=== PATIENT | male | born 1965 | race Caucasian/White ===

== ENCOUNTER 2019-03-28 09:53 | Inpatient (IN) | payer SELFPAY ==
[~2019-03-28] VITALS: Ht 167.6 cm; Wt 71.1 kg
[2019-03-28] VITALS (15 sets, daily range): BP systolic 112–143; BP diastolic 68–100
[2019-03-28] MEDS ORDERED: ALBU8.5H8 IH (09:55)
[2019-03-28 10:24] LABS: EOSINOPHILS % (AUTO) 2.8 % (1.0-6.0); HEMATOCRIT 42.2 % (41-53); HEMOGLOBIN 13.8 g/dL (13.5-17.5); LYMPHOCYTES % (AUTO) 32.7 % (22.0-44.0); MEAN CORPUSCULAR HEMOGLOBIN 29.7 pg (26.0-34.0); MEAN CORPUSCULAR HGB CONC 32.7 G/dL (31.0-37.0); MEAN CORPUSCULAR VOLUME 91 fL (80-100); MONOCYTES # (AUTO) 0.3 K/uL (0.1-1.0); MONOCYTES % (AUTO) 5.5 % (2.0-9.0); NEUTROPHILS # (AUTO) 3.5 K/uL (1.8-7.7); PLATELET COUNT (AUTO) 295 K/uL (150-450); RED BLOOD CELL COUNT(AUTO) 4.65 MIL/uL (4.50-5.90); RED CELL DISTRIBUTION WIDTH 13.1 % (11.5-14.5)
[2019-03-28] MEDS ORDERED: METOPROLOL TARTRATE 5 MG/5 ML VIAL IVP ONE (10:30)
[2019-03-28] MEDS ORDERED: MORPHINE SULFATE 2 MG/ML SYRINGE IVP ONE (10:30)
[2019-03-28] MEDS ORDERED: NITROGLYCERIN 2% (1 GM=INCH) PACKET TP ONE (10:30)
[2019-03-28] MEDS ORDERED: ASPIRIN 325 MG TABLET PO ONE (10:30)
[2019-03-28] MEDS ORDERED: ONDANSETRON HCL 4 MG/2 ML VIAL IVP ONE (10:30)
[2019-03-28 10:40] LABS: ANION GAP 9 mmol/L (8-16); CALCIUM, TOTAL 8.7 mg/dL (8.8-10.5); CARBON DIOXIDE 28 mmol/L (22-29); CHLORIDE 103 mmol/L (98-107); CREATININE 1.15 mg/dL (0.60-1.30); GLOMERULAR FILTR. RATE CALC > 60 mL/min (>60); GLUCOSE,RANDOM 128 mg/dL (70-110); POTASSIUM 3.8 mmol/L (3.5-5.1); SODIUM SERUM 140 mmol/L (136-145); UREA NITROGEN, BLOOD 19 mg/dL (7-18)
[2019-03-28] MEDS ORDERED: HEPARIN SODIUM,PORCINE 5,000 UNITS/ML VIAL ONE (10:42)
[2019-03-28 10:45] LABS: ALANINE AMINOTRANSFERASE 56 U/L (12-78); ALBUMIN 3.3 g/dL (3.4-5.0); ALKALINE PHOSPHATASE 99 U/L (46-116); ASPARTATE AMINOTRANSFERASE 33 U/L (15-37); BILIRUBIN,TOTAL 0.4 mg/dL (0.1-1.0); TOTAL PROTEIN, SERUM 6.6 g/dL (6.4-8.2)
[2019-03-28] MEDS ORDERED: MORPHINE SULFATE 4 MG/ML SYRINGE IVP ONE (10:45)
[2019-03-28] MEDS ORDERED: TICAGRELOR 90 MG TABLET PO ONE (10:45)
[2019-03-28] MEDS ORDERED: HEPARIN SODIUM,PORCINE 5,000 UNITS/ML VIAL IVP ONE ×2 (10:45→12:30)
[2019-03-28] MEDS ORDERED: NITROGLYCERIN 400 MCG/SUBLINGUAL SPRAY 4.9 GM BOTTLE SL ONE (10:45)
[2019-03-28] MEDS ORDERED: HEPARIN SODIUM 1000 UNITS/NS 1,000 ML ONE (10:49)
[2019-03-28] MEDS ORDERED: IOHEXOL 300 MG/ML 150 ML VIAL ONE (10:49)
[2019-03-28] MEDS ORDERED: LIDOCAINE/PF 1% 30 ML VIAL ONE (10:49)
[2019-03-28] MEDS ORDERED: SODIUM BICARBONATE 50 MEQ/50 ML VIAL ONE (10:49)
[2019-03-28 10:53] LABS: PROTHROMBIN TIME 10.1 SEC (9.4-11.6)
[2019-03-28] MEDS ORDERED: VERAPAMIL HCL 2.5 MG/ML 2 ML VIAL ONE (11:13)
[2019-03-28] MEDS ORDERED: NITROGLYCERIN 50 MG/D5% WATER 0 ML ONE (11:13)
[2019-03-28] MEDS ORDERED: MIDAZOLAM HCL 2 MG/2 ML VIAL ONE (11:14)
[2019-03-28] MEDS ORDERED: FentaNYL CITRATE-PF 100 MCG/2 ML VIAL ONE (11:14)
[2019-03-28] MEDS ORDERED: IOHEXOL 300 MG/ML 50 ML VIAL ONE (11:23)
[2019-03-28] MEDS ORDERED: SODIUM CHLORIDE 0.9% 500 ML IV ONE (11:24)
[2019-03-28] MEDS ORDERED: HEPARIN SODIUM 2,000 UNITS in HEPARIN SODIUM 1000 UNITS/NS 1,000 ML IARTER ONE (11:24)
[2019-03-28] MEDS ORDERED: IOHEXOL 300 MG/ML 100 ML VIAL ONE (11:27)
[2019-03-28] MEDS ORDERED: IOHEXOL 300 MG/ML 150 ML VIAL IARTER ONE (11:30)
[2019-03-28] MEDS ORDERED: MIDAZOLAM HCL 2 MG/2 ML VIAL IVP ONE (11:30)
[2019-03-28] MEDS ORDERED: FentaNYL CITRATE-PF 100 MCG/2 ML VIAL IVP ONE (11:30)
[2019-03-28] MEDS ORDERED: IOHEXOL 300 MG/ML 50 ML VIAL IARTER ONE (11:30)
[2019-03-28] MEDS ORDERED: LIDOCAINE 1% 30 ML/SOD BICARB 8.4% 4 ML SQ ONE (11:30)
[2019-03-28] MEDS ORDERED: HYDROCODONE/ACETAMINOPHEN 5-325 MG TABLET PO PRN (12:15)
[2019-03-28] MEDS ORDERED: MORPHINE SULFATE 4 MG/ML SYRINGE IVP PRN (12:15)
[2019-03-28] MEDS ORDERED: MORPHINE SULFATE 2 MG/ML SYRINGE IVP PRN (12:15)
[2019-03-28] MEDS: METOPROLOL SUCCINATE 50 MG ER TABLET PO SCH (12:38)
[2019-03-28] MEDS: LISINOPRIL 10 MG TABLET PO SCH (12:38)
[2019-03-28] MEDS ORDERED: ONDANSETRON HCL 4 MG/2 ML VIAL IVP PRN (14:00)
[2019-03-28] MEDS ORDERED: ZOLPIDEM TARTRATE 5 MG TABLET PO PRN (14:00)
[2019-03-28] MEDS ORDERED: 0.9% SODIUM CHLORIDE 10 ML SYRINGE IVP PRN (14:00)
[2019-03-28] MEDS ORDERED: ACETAMINOPHEN 325 MG TABLET PO PRN (14:00)
[2019-03-28] MEDS ORDERED: PNEUMOCOCCAL VACCINE POLYVALENT 0.5 ML VIAL [PPSV23] IM ONE (14:15)
[2019-03-28] MEDS ORDERED: SODIUM CHLORIDE 0.9% 1,000 ML IV ONE (16:45)
[2019-03-28] MEDS: IPRATROPIUM BROMIDE 0.5 MG/2.5 ML NEB SOLUTION NEB SCH ×2 (17:00→20:25)
[2019-03-28] MEDS: ALBUTEROL SULFATE 2.5 MG/0.5 ML NEB SOLUTION NEB SCH ×2 (17:00→20:26)
[2019-03-28] MEDS: DOCUSATE SODIUM 100 MG CAPSULE PO SCH (20:26)
[2019-03-28] MEDS: ATORVASTATIN CALCIUM 40 MG TABLET PO SCH (20:26)
[2019-03-28 21:12] LABS: AMPHET/METH SCREEN,URINE POSITIVE (NEGATIVE); BARBITURATE SCREEN, URINE NEGATIVE (NEGATIVE); BENZODIAZEPINES SCREEN,URINE NEGATIVE (NEGATIVE); CANNABINOID SCREEN,URINE POSITIVE (NEGATIVE); COCAINE SCREEN,URINE NEGATIVE (NEGATIVE); METHADONE SCREEN, URINE NEGATIVE (NEGATIVE); OPIATE SCREEN,URINE POSITIVE (NEGATIVE)
[2019-03-28 21:14] LABS: PHENCYCLIDINE SCREEN,URINE NEGATIVE (NEGATIVE)
[2019-03-29] VITALS (13 sets, daily range): BP systolic 90–130; BP diastolic 40–84
[2019-03-29] MEDS: IPRATROPIUM BROMIDE 0.5 MG/2.5 ML NEB SOLUTION NEB SCH ×4 (02:04→19:53)
[2019-03-29] MEDS: ALBUTEROL SULFATE 2.5 MG/0.5 ML NEB SOLUTION NEB SCH ×4 (02:04→19:53)
[2019-03-29 04:47] LABS: BASOPHILS % (AUTO) 0.5 % (0.0-2.0); EOSINOPHILS % (AUTO) 1.6 % (1.0-6.0); HEMATOCRIT 42.4 % (41-53); HEMOGLOBIN 13.6 g/dL (13.5-17.5); LYMPHOCYTES # (AUTO) 1.3 K/uL (1.0-4.8); LYMPHOCYTES % (AUTO) 18.5 % (22.0-44.0); MEAN CORPUSCULAR HEMOGLOBIN 29.4 pg (26.0-34.0); MEAN CORPUSCULAR VOLUME 92 fL (80-100); MONOCYTES # (AUTO) 0.4 K/uL (0.1-1.0); MONOCYTES % (AUTO) 5.5 % (2.0-9.0); NEUTROPHILS # (AUTO) 5.1 K/uL (1.8-7.7); NEUTROPHILS % (AUTO) 73.9 % (40.0-70.0); PLATELET COUNT (AUTO) 254 K/uL (150-450); RED BLOOD CELL COUNT(AUTO) 4.62 MIL/uL (4.50-5.90); RED CELL DISTRIBUTION WIDTH 13.1 % (11.5-14.5)
[2019-03-29 05:04] LABS: ALANINE AMINOTRANSFERASE 73 U/L (12-78); ALBUMIN 2.9 g/dL (3.4-5.0); ALKALINE PHOSPHATASE 79 U/L (46-116); ANION GAP 10 mmol/L (8-16); ASPARTATE AMINOTRANSFERASE 165 U/L (15-37); BILIRUBIN,TOTAL 0.3 mg/dL (0.1-1.0); CARBON DIOXIDE 24 mmol/L (22-29); CHLORIDE 104 mmol/L (98-107); CREATININE 1.05 mg/dL (0.60-1.30); GLOMERULAR FILTR. RATE CALC > 60 mL/min (>60); GLUCOSE,RANDOM 136 mg/dL (70-110); POTASSIUM 4.1 mmol/L (3.5-5.1); SODIUM SERUM 138 mmol/L (136-145); TOTAL PROTEIN, SERUM 5.6 g/dL (6.4-8.2); UREA NITROGEN, BLOOD 16 mg/dL (7-18)
[2019-03-29] MEDS: METOPROLOL SUCCINATE 50 MG ER TABLET PO SCH (08:09)
[2019-03-29] MEDS: PANTOPRAZOLE SODIUM 40 MG/VIAL IVP SCH (08:09)
[2019-03-29] MEDS: LISINOPRIL 10 MG TABLET PO SCH (08:09)
[2019-03-29] MEDS: ASPIRIN 81 MG CHEWABLE TABLET PO SCH (08:09)
[2019-03-29] MEDS: DOCUSATE SODIUM 100 MG CAPSULE PO SCH ×2 (09:00→21:17)
[2019-03-29] MEDS ORDERED: CLOPIDOGREL BISULFATE 300 MG TABLET PO ONE (17:45)
[2019-03-29] MEDS: ATORVASTATIN CALCIUM 40 MG TABLET PO SCH (21:17)
[2019-03-30] VITALS: BP 136/79
[2019-03-30] MEDS: IPRATROPIUM BROMIDE 0.5 MG/2.5 ML NEB SOLUTION NEB SCH ×2 (02:28→07:57)
[2019-03-30] MEDS: ALBUTEROL SULFATE 2.5 MG/0.5 ML NEB SOLUTION NEB SCH ×2 (02:28→07:57)
[2019-03-30 04:00] VITALS: BP 139/92
[2019-03-30 05:07] LABS: BASOPHILS % (AUTO) 0.8 % (0.0-2.0); EOSINOPHILS % (AUTO) 1.5 % (1.0-6.0); HEMOGLOBIN 13.3 g/dL (13.5-17.5); LYMPHOCYTES # (AUTO) 1.7 K/uL (1.0-4.8); LYMPHOCYTES % (AUTO) 29.5 % (22.0-44.0); MEAN CORPUSCULAR HEMOGLOBIN 29.5 pg (26.0-34.0); MEAN CORPUSCULAR HGB CONC 32.5 G/dL (31.0-37.0); MEAN CORPUSCULAR VOLUME 91 fL (80-100); MONOCYTES # (AUTO) 0.3 K/uL (0.1-1.0); MONOCYTES % (AUTO) 5.1 % (2.0-9.0); NEUTROPHILS # (AUTO) 3.7 K/uL (1.8-7.7); NEUTROPHILS % (AUTO) 63.1 % (40.0-70.0); PLATELET COUNT (AUTO) 236 K/uL (150-450); RED BLOOD CELL COUNT(AUTO) 4.52 MIL/uL (4.50-5.90); RED CELL DISTRIBUTION WIDTH 13.1 % (11.5-14.5)
[2019-03-30 05:41] LABS: B-TYPE NATRIURETIC PEPTIDE 919 pg/mL (0-100)
[2019-03-30 05:42] LABS: ANION GAP 8 mmol/L (8-16); CALCIUM, TOTAL 8.4 mg/dL (8.8-10.5); CARBON DIOXIDE 26 mmol/L (22-29); CHLORIDE 108 mmol/L (98-107); CREATINE KINASE, TOTAL ONLY 400 U/L (39-308); GLOMERULAR FILTR. RATE CALC > 60 mL/min (>60); GLUCOSE,RANDOM 102 mg/dL (70-110); POTASSIUM 4.6 mmol/L (3.5-5.1); SODIUM SERUM 142 mmol/L (136-145); UREA NITROGEN, BLOOD 11 mg/dL (7-18)
[2019-03-30 08:00] VITALS: BP 130/70
[2019-03-30] MEDS ORDERED: CLOPIDOGREL BISULFATE 75 MG TABLET PO SCH (09:00)
[2019-03-30] MEDS: ASPIRIN 81 MG CHEWABLE TABLET PO SCH (09:27)
[2019-03-30] MEDS: LISINOPRIL 10 MG TABLET PO SCH (09:27)
[2019-03-30] MEDS: DOCUSATE SODIUM 100 MG CAPSULE PO SCH (09:27)
[2019-03-30] MEDS: METOPROLOL SUCCINATE 50 MG ER TABLET PO SCH (09:27)
[2019-03-30] MEDS: PANTOPRAZOLE SODIUM 40 MG/VIAL IVP SCH (09:28)
== END 2019-03-30 09:55 | disposition left against medical advice (07) | DRG 282 ==
LOC: EDBD 09:54 → EMS 09:54 → ICU 11:09
PROVIDERS: ADMIT Internal Medicine; ATTEND Internal Medicine
PROC: 4A023N7 Measurement of Cardiac Sampling and Pressure, Left Heart, Percutaneous Approach (ICD-10-PCS; principal; 2019-03-28)
PROC: B2111ZZ Fluoroscopy of Multiple Coronary Arteries using Low Osmolar Contrast (ICD-10-PCS; 2019-03-28)
PROC: B2151ZZ Fluoroscopy of Left Heart using Low Osmolar Contrast (ICD-10-PCS; 2019-03-28)
DX: I21.19 ST elevation (STEMI) myocardial infarction involving other coronary artery of inferior wall (principal); I11.9 Hypertensive heart disease without heart failure; F12.90 Cannabis use, unspecified, uncomplicated; F15.90 Other stimulant use, unspecified, uncomplicated; F17.210 Nicotine dependence, cigarettes, uncomplicated; J45.909 Unspecified asthma, uncomplicated
CPT/HCPCS: 80307; 83735; 87081; 90686; 90732; 93005; 93306; 94640; 99291; C9113; G0378; J1644; J2250; J2270; J2405; J3010; J3490; J7030; Q9967

== ENCOUNTER 2019-11-09 20:43 | Inpatient (IN) | payer MEDICAID, OTHER ==
[~2019-11-09] VITALS: Ht 165.1 cm; Wt 73.6 kg
[~2019-11-09 20:43] MED LIST: ALBU8.5H8 IH
[2019-11-09] MEDS ORDERED: HYDR12.530 PO (20:50)
[2019-11-09] MEDS ORDERED: ASPI-1182 PO (21:01)
[2019-11-09] MEDS ORDERED: WARF2 PO (21:01)
[2019-11-09] MEDS ORDERED: ATOR20TA86 PO (21:01)
[2019-11-09 21:20] LABS: BASOPHILS % (AUTO) 0.9 % (0.0-2.0); EOSINOPHILS % (AUTO) 1.4 % (1.0-6.0); HEMATOCRIT 41.9 % (41-53); HEMOGLOBIN 13.7 g/dL (13.5-17.5); LYMPHOCYTES # (AUTO) 1.4 K/uL (1.0-4.8); LYMPHOCYTES % (AUTO) 20.4 % (22.0-44.0); MEAN CORPUSCULAR HEMOGLOBIN 31.8 pg (26.0-34.0); MEAN CORPUSCULAR HGB CONC 32.7 G/dL (31.0-37.0); MEAN CORPUSCULAR VOLUME 97 fL (80-100); MONOCYTES # (AUTO) 0.4 K/uL (0.1-1.0); MONOCYTES % (AUTO) 5.2 % (2.0-9.0); NEUTROPHILS # (AUTO) 4.8 K/uL (1.8-7.7); NEUTROPHILS % (AUTO) 72.1 % (40.0-70.0); PLATELET COUNT (AUTO) 243 K/uL (150-450); RED CELL DISTRIBUTION WIDTH 17.1 % (11.5-14.5)
[2019-11-09] MEDS ORDERED: ASPIRIN 325 MG TABLET PO ONE (21:30)
[2019-11-09 21:33] LABS: CALCIUM, TOTAL 8.6 mg/dL (8.8-10.5); CREATININE 1.26 mg/dL (0.60-1.30)
[2019-11-09 21:36] LABS: INR 1.1 (0.9-1.1); PROTHROMBIN TIME 10.8 SEC (9.4-11.6)
[2019-11-09 21:45] LABS: D-DIMER 0.96 mg/L FEU (0.00-0.50)
[2019-11-09 21:57] LABS: ALBUMIN 3.6 g/dL (3.4-5.0); BILIRUBIN,TOTAL 0.9 mg/dL (0.1-1.0); TOTAL PROTEIN, SERUM 7.1 g/dL (6.4-8.2)
[2019-11-09] MEDS ORDERED: SODIUM CHLORIDE 0.9% 100 ML ONE (22:13)
[2019-11-09] MEDS ORDERED: IOVERSOL 350 MG/ML 100 ML VIAL ONE (22:13)
[2019-11-09 22:18] LABS: AMPHET/METH SCREEN,URINE POSITIVE (NEGATIVE); BARBITURATE SCREEN, URINE NEGATIVE (NEGATIVE); BENZODIAZEPINES SCREEN,URINE NEGATIVE (NEGATIVE); CANNABINOID SCREEN,URINE POSITIVE (NEGATIVE); COCAINE SCREEN,URINE NEGATIVE (NEGATIVE); METHADONE SCREEN, URINE NEGATIVE (NEGATIVE); OPIATE SCREEN,URINE NEGATIVE (NEGATIVE)
[2019-11-09 22:19] LABS: APPEARANCE,URINE CLEAR (CLEAR); BILIRUBIN,URINE NEGATIVE (NEGATIVE); GLUCOSE, URINE (UA) NEGATIVE (NEGATIVE); KETONES,URINE NEGATIVE (NEGATIVE); LEUKOCYTE ESTERASE ,URINE NEGATIVE (NEGATIVE); NITRATE,URINE NEGATIVE (NEGATIVE); OCCULT BLOOD,URINE NEGATIVE (NEGATIVE); PH,URINE 5.5 (5.0-8.0); PROTEIN,URINE TRACE (NEGATIVE)
[2019-11-09 22:20] LABS: PHENCYCLIDINE SCREEN,URINE NEGATIVE (NEGATIVE)
[2019-11-10] MEDS ORDERED: 0.9% SODIUM CHLORIDE 10 ML SYRINGE IVP PRN
[2019-11-10] MEDS ORDERED: OxyCODONE HCL/ACETAMINOPHEN 5-325 MG TABLET PO PRN ×2
[2019-11-10] MEDS ORDERED: ONDANSETRON HCL 4 MG/2 ML VIAL IVP PRN
[2019-11-10] MEDS ORDERED: ACETAMINOPHEN 325 MG TABLET PO PRN
[2019-11-10] MEDS ORDERED: MAGNESIUM HYDROXIDE SUSPENSION 30 ML UDCUP PO PRN
[2019-11-10] MEDS: METOPROLOL TARTRATE 25 MG TABLET PO SCH ×4 (00:14→20:52)
[2019-11-10] MEDS ORDERED: HEPARIN SODIUM 25000 UNITS/D5W 250 ML IV PRN ×2 (01:03→20:12)
[2019-11-10] MEDS ORDERED: HEPARIN SODIUM,PORCINE 5,000 UNITS/ML VIAL IVP PRN ×4 (01:15→20:15)
[2019-11-10] MEDS ORDERED: FUROSEMIDE 20 MG/2 ML VIAL IVP ONE (01:15)
[2019-11-10] MEDS ORDERED: HEPARIN SODIUM,PORCINE 5,000 UNITS/ML VIAL IVP ONE (01:15)
[2019-11-10 03:16] VITALS: BP 111/73
[2019-11-10 06:39] LABS: BASOPHILS % (AUTO) 0.9 % (0.0-2.0); HEMATOCRIT 39.7 % (41-53); HEMOGLOBIN 12.9 g/dL (13.5-17.5); LYMPHOCYTES # (AUTO) 1.1 K/uL (1.0-4.8); LYMPHOCYTES % (AUTO) 15.3 % (22.0-44.0); MEAN CORPUSCULAR HEMOGLOBIN 31.5 pg (26.0-34.0); MEAN CORPUSCULAR HGB CONC 32.5 G/dL (31.0-37.0); MEAN CORPUSCULAR VOLUME 97 fL (80-100); MONOCYTES # (AUTO) 0.5 K/uL (0.1-1.0); MONOCYTES % (AUTO) 6.4 % (2.0-9.0); NEUTROPHILS # (AUTO) 5.5 K/uL (1.8-7.7); NEUTROPHILS % (AUTO) 76.4 % (40.0-70.0); PLATELET COUNT (AUTO) 230 K/uL (150-450); RED CELL DISTRIBUTION WIDTH 17.1 % (11.5-14.5)
[2019-11-10 06:52] LABS: INR 1.2 (0.9-1.1)
[2019-11-10 06:58] LABS: CALCIUM, TOTAL 8.8 mg/dL (8.8-10.5); CREATININE 1.28 mg/dL (0.60-1.30); POTASSIUM 4.3 mmol/L (3.5-5.1)
[2019-11-10 07:19] VITALS: BP 130/70
[2019-11-10] MEDS: FUROSEMIDE 40 MG/4 ML VIAL IVP SCH (08:41)
[2019-11-10] MEDS: DOCUSATE SODIUM 100 MG CAPSULE PO SCH ×2 (08:42→20:52)
[2019-11-10] MEDS: ATORVASTATIN CALCIUM 20 MG TABLET PO SCH (08:42)
[2019-11-10] MEDS: POTASSIUM CHLORIDE 8 MEQ ER TABLET PO SCH (08:42)
[2019-11-10] MEDS: FAMOTIDINE 10 MG/ML 2 ML VIAL IVP SCH (08:42)
[2019-11-10] MEDS ORDERED: POTASSIUM CHLORIDE 8 MEQ ER TABLET PO SCH (09:00)
[2019-11-10 12:08] VITALS: BP 153/88
[2019-11-10] MEDS: ALBUTEROL SULFATE 2.5 MG/0.5 ML NEB SOLUTION NEB PRN ×2 (14:20→19:37)
[2019-11-10] MEDS: IPRATROPIUM BROMIDE 0.5 MG/2.5 ML NEB SOLUTION NEB PRN ×2 (14:20→19:37)
[2019-11-10] MEDS ORDERED: WARFARIN SODIUM 2 MG TABLET PO SCH (17:00)
[2019-11-10 18:18] VITALS: BP 129/82
[2019-11-10] MEDS ORDERED: 0.9% SODIUM CHLORIDE 5 ML NEB SOLUTION NEB ONE (19:35)
[2019-11-10 19:51] VITALS: BP 117/69
[2019-11-10 23:28] VITALS: BP 125/71
[2019-11-11] MEDS: IPRATROPIUM BROMIDE 0.5 MG/2.5 ML NEB SOLUTION NEB PRN (03:52)
[2019-11-11] MEDS: ALBUTEROL SULFATE 2.5 MG/0.5 ML NEB SOLUTION NEB PRN (03:52)
[2019-11-11 05:10] VITALS: BP 113/70
[2019-11-11 06:46] LABS: BASOPHILS % (AUTO) 0.7 % (0.0-2.0); HEMATOCRIT 39.7 % (41-53); HEMOGLOBIN 13.1 g/dL (13.5-17.5); LYMPHOCYTES # (AUTO) 1.5 K/uL (1.0-4.8); MEAN CORPUSCULAR HEMOGLOBIN 31.7 pg (26.0-34.0); MEAN CORPUSCULAR VOLUME 96 fL (80-100); MONOCYTES # (AUTO) 0.5 K/uL (0.1-1.0); MONOCYTES % (AUTO) 6.7 % (2.0-9.0); NEUTROPHILS # (AUTO) 5.7 K/uL (1.8-7.7); NEUTROPHILS % (AUTO) 72.6 % (40.0-70.0); PLATELET COUNT (AUTO) 236 K/uL (150-450); RED BLOOD CELL COUNT(AUTO) 4.13 MIL/uL (4.50-5.90); RED CELL DISTRIBUTION WIDTH 16.9 % (11.5-14.5)
[2019-11-11 06:57] LABS: INR 1.2 (0.9-1.1); PROTHROMBIN TIME 11.9 SEC (9.4-11.6)
[2019-11-11 07:32] VITALS: BP 119/73
[2019-11-11] MEDS: FUROSEMIDE 40 MG/4 ML VIAL IVP SCH (08:23)
[2019-11-11] MEDS: ATORVASTATIN CALCIUM 20 MG TABLET PO SCH (08:24)
[2019-11-11] MEDS: POTASSIUM CHLORIDE 8 MEQ ER TABLET PO SCH (08:24)
[2019-11-11] MEDS: DOCUSATE SODIUM 100 MG CAPSULE PO SCH (08:24)
[2019-11-11] MEDS: FAMOTIDINE 10 MG/ML 2 ML VIAL IVP SCH (08:25)
[2019-11-11] MEDS ORDERED: METO25 PO (09:57)
[2019-11-11] MEDS ORDERED: FURO20 PO (09:58)
[2019-11-11] MEDS ORDERED: LISI-660 PO (09:58)
[2019-11-11 11:55] VITALS: BP 99/57
[2019-11-11] MEDS ORDERED: METOPROLOL TARTRATE 25 MG TABLET PO SCH (21:00)
== END 2019-11-11 12:05 | disposition home or self-care (01) | DRG 194 ==
LOC: EMS 20:44 → 5N 22:44
PROVIDERS: ADMIT Internal Medicine; ATTEND Internal Medicine
DX: I11.0 Hypertensive heart disease with heart failure (principal); I24.8 Other forms of acute ischemic heart disease; I42.8 Other cardiomyopathies; I50.21 Acute systolic (congestive) heart failure; Z79.01 Long term (current) use of anticoagulants; Z91.14 Patient's other noncompliance with medication regimen; I25.89 Other forms of chronic ischemic heart disease; E78.00 Pure hypercholesterolemia, unspecified; F12.90 Cannabis use, unspecified, uncomplicated; F15.90 Other stimulant use, unspecified, uncomplicated; F17.210 Nicotine dependence, cigarettes, uncomplicated; I25.2 Old myocardial infarction; I48.91 Unspecified atrial fibrillation; J44.9 Chronic obstructive pulmonary disease, unspecified; K08.89 Other specified disorders of teeth and supporting structures; Z86.73 Personal history of transient ischemic attack (TIA), and cerebral infarction without residual deficits; Z91.19 Patient's noncompliance with other medical treatment and regimen
CPT/HCPCS: 71275; 85379; 93005; 93306; 94640; 99291; J1644; J1940; J3490; J7050

== ENCOUNTER 2021-03-30 19:00 | Emergency (ER) | payer OTHER ==
[~2021-03-30] VITALS: Ht 167.6 cm; Wt 72.7 kg
[~2021-03-30 19:00] MED LIST changes: +AMIO200T68 PO; +APIX5TAB PO; +BUME2TAB5 PO; +CARV6 PO; +FAMO20 PO; +METO2.5T4 PO; +PRED20 PO; +[UNRECOGNIZED DRUG - CODE] PO
[2021-03-30] MEDS ORDERED: IPRATROPIUM BROMIDE 0.5 MG/2.5 ML NEB SOLUTION NEB ONE (19:45)
[2021-03-30] MEDS ORDERED: PredniSONE 20 MG TABLET PO ONE (19:45)
[2021-03-30] MEDS ORDERED: ALBUTEROL SULFATE 5 MG/ML 20 ML NEB SOLN [BULK] NEB ONE (19:45)
[2021-03-30 20:40] LABS: BASOPHILS % (AUTO) 0.6 % (0.0-2.0); EOSINOPHILS % (AUTO) 2.1 % (1.0-6.0); HEMATOCRIT 40.4 % (41-53); LYMPHOCYTES # (AUTO) 1.1 K/uL (1.0-4.8); LYMPHOCYTES % (AUTO) 14.6 % (22.0-44.0); MEAN CORPUSCULAR HEMOGLOBIN 28.5 pg (26.0-34.0); MEAN CORPUSCULAR HGB CONC 32.2 G/dL (31.0-37.0); MEAN CORPUSCULAR VOLUME 89 fL (80-100); MONOCYTES # (AUTO) 0.5 K/uL (0.1-1.0); MONOCYTES % (AUTO) 5.9 % (2.0-9.0); NEUTROPHILS % (AUTO) 76.8 % (40.0-70.0); PLATELET COUNT (AUTO) 231 K/uL (150-450); RED BLOOD CELL COUNT(AUTO) 4.56 MIL/uL (4.50-5.90); RED CELL DISTRIBUTION WIDTH 15.1 % (11.5-14.5)
[2021-03-30 20:45] VITALS: BP 127/90
[2021-03-30 20:54] LABS: CALCIUM, TOTAL 8.5 mg/dL (8.8-10.5); CREATININE 1.39 mg/dL (0.60-1.30); POTASSIUM 4.7 mmol/L (3.5-5.1)
== END 2021-03-30 21:25 | disposition home or self-care (01) ==
LOC: EMS 19:01
DX: J45.909 Unspecified asthma, uncomplicated (principal); I11.0 Hypertensive heart disease with heart failure; I50.9 Heart failure, unspecified; I25.2 Old myocardial infarction; I48.91 Unspecified atrial fibrillation; F17.210 Nicotine dependence, cigarettes, uncomplicated; F19.90 Other psychoactive substance use, unspecified, uncomplicated; Z20.822 Contact with and (suspected) exposure to COVID-19
CPT/HCPCS: 36415; 71045; 80048; 84484; 85025; 93005; 94640; 99285; J7512; U0003; 94644; J7611

== ENCOUNTER 2021-12-09 17:06 | Emergency (ER) | payer OTHER ==
[~2021-12-09] VITALS: Ht 165.1 cm; Wt 65.9 kg
[2021-12-09 23:30] LABS: COVID AG,FIA SOURCE NASOPHARYNGEAL
[2021-12-10 02:11] LABS: BASOPHILS % (AUTO) 0.9 % (0.0-2.0); EOSINOPHILS % (AUTO) 0.7 % (1.0-6.0); HEMATOCRIT 47.6 % (41-53); HEMOGLOBIN 15.5 g/dL (13.5-17.5); LYMPHOCYTES # (AUTO) 1.2 K/uL (1.0-4.8); LYMPHOCYTES % (AUTO) 13.5 % (22.0-44.0); MEAN CORPUSCULAR HEMOGLOBIN 28.8 pg (26.0-34.0); MEAN CORPUSCULAR HGB CONC 32.6 G/dL (31.0-37.0); MEAN CORPUSCULAR VOLUME 88 fL (80-100); MONOCYTES # (AUTO) 0.7 K/uL (0.1-1.0); MONOCYTES % (AUTO) 8.1 % (2.0-9.0); NEUTROPHILS # (AUTO) 6.7 K/uL (1.8-7.7); NEUTROPHILS % (AUTO) 76.8 % (40.0-70.0); PLATELET COUNT (AUTO) 257 K/uL (150-450); RED CELL DISTRIBUTION WIDTH 17.9 % (11.5-14.5)
[2021-12-10 02:21] LABS: CALCIUM, TOTAL 9.1 mg/dL (8.8-10.5); CREATININE 1.73 mg/dL (0.60-1.30); POTASSIUM 4.8 mmol/L (3.5-5.1)
[2021-12-10 02:26] LABS: BILIRUBIN,TOTAL 3.3 mg/dL (0.1-1.0); TOTAL PROTEIN, SERUM 7.2 g/dL (6.4-8.2)
[2021-12-10] MEDS ORDERED: BUMETANIDE 0.25 MG/ML 4 ML VIAL IVP ONE (03:45)
[2021-12-10] MEDS ORDERED: BUMETANIDE 0.25 MG/ML 4 ML VIAL IVP SCH (12:00)
[2021-12-10] MEDS: CARVEDILOL 3.125 MG TABLET PO SCH ×2 (12:15→21:18)
[2021-12-10] MEDS ORDERED: COLC0.6T73 PO (13:07)
[2021-12-10] MEDS ORDERED: FLUT44H IH (13:07)
[2021-12-10] MEDS ORDERED: CARV6.2534 PO (13:07)
[2021-12-10] MEDS ORDERED: HYDR10TA31 PO (13:07)
[2021-12-10] MEDS ORDERED: ATOR40TA71 PO (13:07)
[2021-12-10] MEDS ORDERED: FAMO20 PO (13:07)
[2021-12-10] MEDS ORDERED: BUME1TAB34 PO (13:07)
[2021-12-10] MEDS ORDERED: ALBU8HFA IH (13:07)
[2021-12-10] MEDS ORDERED: APIX5TAB PO (13:07)
[2021-12-10] MEDS ORDERED: HYDR25TA84 PO (13:13)
[2021-12-10] MEDS ORDERED: IPRATROPIUM BROMIDE 0.5 MG/2.5 ML NEB SOLUTION NEB PRN (18:15)
[2021-12-10] MEDS ORDERED: MAGNESIUM HYDROXIDE SUSPENSION 30 ML UDCUP PO PRN (18:15)
[2021-12-10] MEDS ORDERED: ALBUTEROL SULFATE 2.5 MG/0.5 ML NEB SOLUTION NEB PRN (18:15)
[2021-12-10] MEDS ORDERED: ZOLPIDEM TARTRATE 5 MG TABLET PO PRN (18:15)
[2021-12-10] MEDS ORDERED: ONDANSETRON HCL 4 MG/2 ML VIAL IVP PRN (18:15)
[2021-12-10] MEDS ORDERED: HYDROCODONE/ACETAMINOPHEN 5-325 MG TABLET PO PRN (18:15)
[2021-12-10] MEDS ORDERED: BISACODYL 10 MG RECTAL RECTAL SUPPOSITORY PR PRN (18:15)
[2021-12-10] MEDS ORDERED: MORPHINE SULFATE 2 MG/ML SYRINGE IVP PRN (18:15)
[2021-12-10] MEDS ORDERED: ACETAMINOPHEN 325 MG TABLET PO PRN (18:15)
[2021-12-10] MEDS ORDERED: LEVOTHYROXINE SODIUM 50 MCG TABLET PO ONE (18:15)
[2021-12-10] MEDS: DOCUSATE SODIUM 100 MG CAPSULE PO SCH (21:00)
[2021-12-10] MEDS: APIXABAN 5 MG TABLET PO SCH (21:19)
[2021-12-11 06:08] LABS: BASOPHILS % (AUTO) 1.5 % (0.0-2.0); EOSINOPHILS % (AUTO) 1.9 % (1.0-6.0); HEMATOCRIT 46.1 % (41-53); HEMOGLOBIN 15.4 g/dL (13.5-17.5); LYMPHOCYTES % (AUTO) 15.3 % (22.0-44.0); MEAN CORPUSCULAR HEMOGLOBIN 28.8 pg (26.0-34.0); MEAN CORPUSCULAR HGB CONC 33.3 G/dL (31.0-37.0); MEAN CORPUSCULAR VOLUME 87 fL (80-100); MONOCYTES # (AUTO) 0.6 K/uL (0.1-1.0); MONOCYTES % (AUTO) 8.8 % (2.0-9.0); NEUTROPHILS # (AUTO) 4.6 K/uL (1.8-7.7); NEUTROPHILS % (AUTO) 72.5 % (40.0-70.0); PLATELET COUNT (AUTO) 240 K/uL (150-450); RED BLOOD CELL COUNT(AUTO) 5.33 MIL/uL (4.50-5.90)
[2021-12-11 07:40] LABS: CALCIUM, TOTAL 8.3 mg/dL (8.8-10.5); CREATININE 1.59 mg/dL (0.60-1.30)
[2021-12-11] MEDS: CARVEDILOL 3.125 MG TABLET PO SCH (08:46)
[2021-12-11] MEDS: APIXABAN 5 MG TABLET PO SCH (08:46)
[2021-12-11] MEDS ORDERED: ATORVASTATIN CALCIUM 40 MG TABLET PO SCH (09:00)
[2021-12-11] MEDS ORDERED: PANTOPRAZOLE SODIUM 40 MG DR TABLET PO SCH (09:00)
[2021-12-11] MEDS ORDERED: PANTOPRAZOLE SODIUM 40 MG/VIAL IVP SCH (09:00)
[2021-12-11] MEDS: DOCUSATE SODIUM 100 MG CAPSULE PO SCH (09:00)
[2021-12-11] MEDS ORDERED: BUMETANIDE 0.25 MG/ML 10 ML VIAL IVP SCH (09:00)
[2021-12-11] MEDS ORDERED: LOSARTAN POTASSIUM 25 MG TABLET PO SCH (09:00)
[2021-12-11] MEDS ORDERED: BUMETANIDE 1 MG TABLET PO SCH (11:15)
[2021-12-11 11:37] VITALS: BP 107/92
== END 2021-12-11 13:11 | disposition home or self-care (01) ==
LOC: EMS 17:08
DX: I11.0 Hypertensive heart disease with heart failure (principal); I50.9 Heart failure, unspecified; R77.8 Other specified abnormalities of plasma proteins; N17.9 Acute kidney failure, unspecified; I48.91 Unspecified atrial fibrillation; F15.90 Other stimulant use, unspecified, uncomplicated; F17.210 Nicotine dependence, cigarettes, uncomplicated; Z79.899 Other long term (current) drug therapy; Z20.822 Contact with and (suspected) exposure to COVID-19
CPT/HCPCS: 36415; 71045; 80048; 80053; 83880; 84484; 85025; 87426; 96374; 96375; 96376 ×2; 99285; J3490; U0003

== ENCOUNTER 2021-12-14 18:45 | Emergency (ER) | payer OTHER ==
[~2021-12-14] VITALS: Ht 167.6 cm; Wt 68.2 kg
[~2021-12-14 18:45] MED LIST changes: +ALBU8HFA IH; +ATOR40TA71 PO; +BUME1TAB34 PO; +COLC0.6T73 PO; +FLUT44H IH; +HYDR25TA84 PO
[2021-12-14] MEDS ORDERED: BUMETANIDE 1 MG TABLET PO ONE (21:30)
[2021-12-14] MEDS ORDERED: CARVEDILOL 3.125 MG TABLET PO ONE (21:30)
[2021-12-14] MEDS ORDERED: ALBUTEROL SULFATE HFA 90 MCG/PUFF 8 GM INHALER IH ONE (21:30)
[2021-12-14] MEDS ORDERED: PANTOPRAZOLE SODIUM 40 MG DR TABLET PO ONE (21:30)
[2021-12-14] MEDS ORDERED: APIXABAN 5 MG TABLET PO ONE (21:30)
[2021-12-14 21:50] LABS: BASOPHILS % (AUTO) 0.7 % (0.0-2.0); EOSINOPHILS % (AUTO) 1.4 % (1.0-6.0); HEMATOCRIT 44.9 % (41-53); HEMOGLOBIN 14.9 g/dL (13.5-17.5); LYMPHOCYTES # (AUTO) 1.6 K/uL (1.0-4.8); MEAN CORPUSCULAR HEMOGLOBIN 29.3 pg (26.0-34.0); MEAN CORPUSCULAR HGB CONC 33.2 G/dL (31.0-37.0); MEAN CORPUSCULAR VOLUME 88 fL (80-100); MONOCYTES # (AUTO) 0.5 K/uL (0.1-1.0); MONOCYTES % (AUTO) 8.3 % (2.0-9.0); NEUTROPHILS % (AUTO) 64.6 % (40.0-70.0); PLATELET COUNT (AUTO) 283 K/uL (150-450); RED BLOOD CELL COUNT(AUTO) 5.08 MIL/uL (4.50-5.90); RED CELL DISTRIBUTION WIDTH 18.5 % (11.5-14.5)
[2021-12-14 22:02] LABS: ANION GAP 6 mmol/L (8-16); CALCIUM, TOTAL 9.1 mg/dL (8.8-10.5); CARBON DIOXIDE 33 mmol/L (22-29); CHLORIDE 99 mmol/L (98-107); CREATININE 1.73 mg/dL (0.60-1.30); GLOMERULAR FILTR. RATE CALC 42 mL/min (>60); GLUCOSE,RANDOM 114 mg/dL (70-110); POTASSIUM 3.9 mmol/L (3.5-5.1); SODIUM SERUM 138 mmol/L (136-145); UREA NITROGEN, BLOOD 30 mg/dL (7-18)
[2021-12-14 22:08] LABS: ALANINE AMINOTRANSFERASE 89 U/L (12-78); ALBUMIN 3.3 g/dL (3.4-5.0); ALKALINE PHOSPHATASE 254 U/L (46-116); ASPARTATE AMINOTRANSFERASE 136 U/L (15-37); BILIRUBIN,TOTAL 1.7 mg/dL (0.1-1.0); TOTAL PROTEIN, SERUM 7.9 g/dL (6.4-8.2)
[2021-12-14 22:23] LABS: COVID AG,FIA SOURCE NASOPHARYNGEAL
[2021-12-14 23:46] LABS: B-TYPE NATRIURETIC PEPTIDE 2400 pg/mL (0-100)
[2021-12-15 00:11] LABS: AMPHET/METH SCREEN,URINE NEGATIVE (NEGATIVE); BARBITURATE SCREEN, URINE NEGATIVE (NEGATIVE); BENZODIAZEPINES SCREEN,URINE NEGATIVE (NEGATIVE); CANNABINOID SCREEN,URINE NEGATIVE (NEGATIVE); COCAINE SCREEN,URINE NEGATIVE (NEGATIVE); METHADONE SCREEN, URINE NEGATIVE (NEGATIVE); OPIATE SCREEN,URINE NEGATIVE (NEGATIVE)
[2021-12-15 00:28] LABS: PHENCYCLIDINE SCREEN,URINE NEGATIVE (NEGATIVE)
[2021-12-15 02:35] VITALS: BP 121/86
[2021-12-15] MEDS ORDERED: APIXABAN 5 MG TABLET PO ONE (09:00)
[2021-12-15] MEDS ORDERED: PANTOPRAZOLE SODIUM 40 MG DR TABLET PO ONE (09:00)
[2021-12-15] MEDS ORDERED: BUMETANIDE 1 MG TABLET PO ONE (09:00)
[2021-12-15] MEDS ORDERED: CARVEDILOL 3.125 MG TABLET PO ONE (09:00)
== END 2021-12-15 02:43 | disposition home or self-care (01) ==
LOC: EMS 18:47
DX: I42.9 Cardiomyopathy, unspecified (principal); I11.0 Hypertensive heart disease with heart failure; I50.9 Heart failure, unspecified; N18.9 Chronic kidney disease, unspecified; I48.91 Unspecified atrial fibrillation; J45.909 Unspecified asthma, uncomplicated; F17.210 Nicotine dependence, cigarettes, uncomplicated; Z20.822 Contact with and (suspected) exposure to COVID-19; Z59.00 Homelessness unspecified; Z79.899 Other long term (current) drug therapy
CPT/HCPCS: 36415; 71045; 80053; 80307; 83880; 84484; 85025; 87426; 93005; 94640; 99285; G0480; J3535

== ENCOUNTER 2022-04-01 19:15 | Emergency (ER) | payer MEDICARE, OTHER ==
[~2022-04-01] VITALS: Ht 170.2 cm; Wt 67.3 kg
[2022-04-01 19:19] VITALS: BP 122/73
[2022-04-01] MEDS ORDERED: IBUP-2070 PO (20:12)
[2022-04-01] MEDS ORDERED: IBUPROFEN 600 MG TABLET PO ONE (20:15)
[2022-04-01] MEDS ORDERED: HYDROCODONE/ACETAMINOPHEN 5-325 MG TABLET PO ONE (20:15)
[2022-04-01] MEDS ORDERED: COLCHICINE 0.6 MG TABLET PO ONE (20:15)
[2022-04-01] MEDS ORDERED: COLC0.6T73 PO (20:54)
== END 2022-04-01 21:04 | disposition home or self-care (01) ==
LOC: EMS 19:15
DX: M10.9 Gout, unspecified (principal); I48.91 Unspecified atrial fibrillation; I11.0 Hypertensive heart disease with heart failure; I50.9 Heart failure, unspecified; I25.2 Old myocardial infarction; F19.90 Other psychoactive substance use, unspecified, uncomplicated; F17.210 Nicotine dependence, cigarettes, uncomplicated; Z86.73 Personal history of transient ischemic attack (TIA), and cerebral infarction without residual deficits
CPT/HCPCS: 99284; Z7502; Z7610

== ENCOUNTER 2022-04-20 12:03 | Emergency (ER) | payer MEDICARE, OTHER ==
[~2022-04-20] VITALS: Ht 167.6 cm; Wt 63.6 kg
[~2022-04-20 12:03] MED LIST changes: +IBUP-2070 PO
[2022-04-20] MEDS ORDERED: NAPROXEN 250 MG TABLET PO ONE (12:45)
[2022-04-20 12:58] VITALS: BP 137/54
[2022-04-20] MEDS ORDERED: NAPR-1025 PO (13:07)
== END 2022-04-20 13:58 | disposition home or self-care (01) ==
LOC: EMS 12:03
DX: M10.9 Gout, unspecified (principal); I48.91 Unspecified atrial fibrillation; J45.909 Unspecified asthma, uncomplicated; I11.0 Hypertensive heart disease with heart failure; I50.9 Heart failure, unspecified; F17.210 Nicotine dependence, cigarettes, uncomplicated; F15.90 Other stimulant use, unspecified, uncomplicated; Z86.79 Personal history of other diseases of the circulatory system; Z98.890 Other specified postprocedural states
CPT/HCPCS: 99282; Z7502; Z7610

== ENCOUNTER 2022-05-13 09:42 | Emergency (ER) | payer MEDICARE, OTHER ==
[~2022-05-13] VITALS: Ht 167.6 cm; Wt 67.3 kg
[~2022-05-13 09:42] MED LIST changes: +NAPR-1025 PO
[2022-05-13 09:47] VITALS: BP 116/70
[2022-05-13] MEDS ORDERED: COLC0.6T73 PO (10:25)
[2022-05-13] MEDS ORDERED: ALLO100T50 PO (10:25)
[2022-05-13] MEDS ORDERED: ACET-2080 PO (10:25)
[2022-05-13] MEDS ORDERED: NAPR-1193 PO (10:25)
== END 2022-05-13 10:40 | disposition home or self-care (01) ==
LOC: EMS 09:44
DX: M10.9 Gout, unspecified (principal); I48.91 Unspecified atrial fibrillation; M19.90 Unspecified osteoarthritis, unspecified site; J45.909 Unspecified asthma, uncomplicated; F17.210 Nicotine dependence, cigarettes, uncomplicated; I13.0 Hypertensive heart and chronic kidney disease with heart failure and stage 1 through stage 4 chronic kidney disease, or unspecified chronic kidney disease; N18.9 Chronic kidney disease, unspecified; I50.9 Heart failure, unspecified; Z86.73 Personal history of transient ischemic attack (TIA), and cerebral infarction without residual deficits; Z86.79 Personal history of other diseases of the circulatory system; Z98.890 Other specified postprocedural states
CPT/HCPCS: 99283; Z7502

== ENCOUNTER 2022-06-10 11:12 | Emergency (ER) | payer MEDICARE, OTHER ==
[~2022-06-10] VITALS: Ht 167.6 cm; Wt 77.3 kg
[~2022-06-10 11:12] MED LIST changes: +ACET-2080 PO; -ALBU8.5H8 IH; -ALBU8HFA IH; +ALLO100T50 PO; -AMIO200T68 PO; -ATOR40TA71 PO; -BUME1TAB34 PO; -BUME2TAB5 PO; -CARV6 PO; -FAMO20 PO; -FLUT44H IH; -IBUP-2070 PO; -METO2.5T4 PO; +NAPR-1193 PO; -PRED20 PO; -[UNRECOGNIZED DRUG - CODE] PO
[2022-06-10 11:16] VITALS: BP 117/77
[2022-06-10] MEDS ORDERED: NAPR-1193 PO (12:13)
[2022-06-10] MEDS ORDERED: COLC0.6T73 PO (12:13)
== END 2022-06-10 12:33 | disposition home or self-care (01) ==
LOC: EMS 11:12
DX: M10.9 Gout, unspecified (principal); I13.0 Hypertensive heart and chronic kidney disease with heart failure and stage 1 through stage 4 chronic kidney disease, or unspecified chronic kidney disease; N18.9 Chronic kidney disease, unspecified; I50.9 Heart failure, unspecified; I48.91 Unspecified atrial fibrillation; M19.90 Unspecified osteoarthritis, unspecified site; J45.909 Unspecified asthma, uncomplicated; F17.210 Nicotine dependence, cigarettes, uncomplicated; Z86.73 Personal history of transient ischemic attack (TIA), and cerebral infarction without residual deficits; Z86.79 Personal history of other diseases of the circulatory system; Z98.890 Other specified postprocedural states
CPT/HCPCS: 99281; 99283

== ENCOUNTER 2023-01-04 19:02 | Emergency (ER) | payer MEDICARE, OTHER ==
[~2023-01-04] VITALS: Ht 167.6 cm; Wt 68.2 kg
[~2023-01-04 19:02] MED LIST changes: -ACET-2080 PO; -ALLO100T50 PO
[2023-01-04] MEDS ORDERED: LEVO25TA9 PO (19:06)
[2023-01-04] MEDS ORDERED: ATOR10TA PO (19:06)
[2023-01-04] MEDS ORDERED: IBUP-1492 PO (19:06)
[2023-01-04] MEDS ORDERED: PredniSONE 20 MG TABLET PO ONE (22:15)
[2023-01-04] MEDS ORDERED: ALBUTEROL SULFATE 2.5 MG/0.5 ML NEB SOLUTION NEB ONE (22:15)
[2023-01-04] MEDS ORDERED: IPRATROPIUM BROMIDE 0.5 MG/2.5 ML NEB SOLUTION NEB ONE (22:15)
[2023-01-04 22:57] LABS: BASOPHILS % (AUTO) 0.9 % (0.0-2.0); EOSINOPHILS % (AUTO) 4.1 % (1.0-6.0); HEMATOCRIT 41.1 % (41-53); HEMOGLOBIN 13.6 g/dL (13.5-17.5); LYMPHOCYTES # (AUTO) 1.6 K/uL (1.0-4.8); LYMPHOCYTES % (AUTO) 25.3 % (22.0-44.0); MEAN CORPUSCULAR HEMOGLOBIN 30.4 pg (26.0-34.0); MEAN CORPUSCULAR HGB CONC 33.2 G/dL (31.0-37.0); MEAN CORPUSCULAR VOLUME 92 fL (80-100); MONOCYTES # (AUTO) 0.5 K/uL (0.1-1.0); MONOCYTES % (AUTO) 7.6 % (2.0-9.0); NEUTROPHILS % (AUTO) 62.1 % (40.0-70.0); PLATELET COUNT (AUTO) 262 K/uL (150-450); RED BLOOD CELL COUNT(AUTO) 4.48 MIL/uL (4.50-5.90); RED CELL DISTRIBUTION WIDTH 13.1 % (11.5-14.5)
[2023-01-04 23:03] LABS: CALCIUM, TOTAL 8.6 mg/dL (8.8-10.5); CREATININE 1.34 mg/dL (0.60-1.30); POTASSIUM 4.5 mmol/L (3.5-5.1)
[2023-01-04 23:09] LABS: ALBUMIN 3.5 g/dL (3.4-5.0); BILIRUBIN,TOTAL 0.5 mg/dL (0.1-1.0); TOTAL PROTEIN, SERUM 7.1 g/dL (6.4-8.2)
[2023-01-05] MEDS ORDERED: PRED-554 PO (00:08)
[2023-01-05 00:15] VITALS: BP 134/54
[2023-01-05] MEDS ORDERED: ALBUTEROL SULFATE HFA 90 MCG/PUFF 8 GM INHALER IH ONE (00:15)
== END 2023-01-05 00:30 | disposition home or self-care (01) ==
LOC: EMS 19:05
DX: J45.909 Unspecified asthma, uncomplicated (principal); I48.91 Unspecified atrial fibrillation; M19.90 Unspecified osteoarthritis, unspecified site; I11.0 Hypertensive heart disease with heart failure; I50.9 Heart failure, unspecified; F17.210 Nicotine dependence, cigarettes, uncomplicated; F15.90 Other stimulant use, unspecified, uncomplicated; Z98.890 Other specified postprocedural states
CPT/HCPCS: 99284; 71046; 80053; 83880; 84484; 85025; 36415; 94640; 93005; J7512; J3535; J7613